=== PATIENT | male | born 1955 | race Caucasian/White ===

== ENCOUNTER → 2017-05-28 | Outpatient (CLI) | payer OTHER ==
--- NOTE | 2017-05-28 17:08 | PCVCIMAG ---
APPROVED REPORT Exam: Stress Echocardiogram Indication: CAD, s/p CABG, HLP Stress Nurse: Mary Grace Mccormack RN Status: routine HR: 65 bpm Rhythm: NSR Medical History Medical History: CAD s/p CABG Procedure The patient underwent an Exercise Stress Test using the Gurpreet Protocol. Blood pressure, heart rate, and EKG were monitored. An Echocardiogram was performed by cinetechnician in four stages in quad fashion. At peak stress, four selected images were obtained and placed side by side with resting images for comparison. Stress Test Details Stress Test: Exercise stress testing was performed using a Gurpreet protocol. HR Resting HR: 65 bpmMax Heart Rate (APMHR): 158 bpm Max HR Achieved: 122 bpmTarget HR (85% APMHR): 134 bpm % of APMHR: 77 Recovery HR: 67 bpm HR response to stress: Normal HR response to stress BP Resting BP: 120/80 mmHg Max BP: 158/80 mmHg Recovery BP: 140/70 mmHg ECG Resting ECG: Sinus Rhythm Stress ECG: Sinus Rhythm ST Change: Normal Arrhythmia: Isolated PVCs Recovery ECG: Sinus Rhythm Recovery Arrhythmia: None Clinical Reason for Termination: Maximal effort, Dyspnea Stress Symptoms: Dyspnea Exercise duration: 9 min 45 sec Highest Stage Achieved: Stage 4: 4.2 mph at 16% grade. Exercise capacity: 12.3 METs Overall Exercise Capacity for Age: Normal Pre-Stress Echo The resting Echocardiogram showed normal left ventricular contractility with an estimated Ejection Fraction of about 50-55%. Normal wall motion in all segments on baseline images. Post-Stress Echo The stress Echocardiogram showed normal left ventricular contractility with an estimated Ejection Fraction of about 60-65%. Normal augmentation of wall motion in all segments on post stress images. Clinical No clinical or ECG evidence for ischemia. Conclusion Clinical Response: Non-ischemic Exercise Capacity: Average Stress ECG Response: Non-ischemic Stress Echo Images: Non-ischemic Other Information Study Quality: Adequate
== END | disposition home or self-care (01) ==
LOC: PCVCIMAG 15:43
PROVIDERS: ATTEND Internal Medicine Cardiovascular Disease
DX: I25.10 Atherosclerotic heart disease of native coronary artery without angina pectoris (principal); I10 Essential (primary) hypertension; Z95.1 Presence of aortocoronary bypass graft; E78.5 Hyperlipidemia, unspecified; E78.00 Pure hypercholesterolemia, unspecified
CPT/HCPCS: 93325; 93351

== ENCOUNTER → 2018-10-31 | Outpatient (CLI) | payer OTHER ==
--- NOTE | 2018-10-31 17:11 | PCVCIMAG ---
APPROVED REPORT Study performed: 10/31/2018 15:10:23 Exam: Stress Echocardiogram Indication: CAD s/p CABG, Hyperlipidemia, Hypertension Patient Location: Echo lab Stress Nurse: Brianna Lagunas RN Status: routine Ht: 6 ft 0 in HR: 69 bpm BP: 138/80 mmHg Rhythm: Atrial Fibrillation Medical History Medical History: CAD s/p CABG Procedure The patient underwent an Exercise Stress Test using the Gurpreet Protocol. Blood pressure, heart rate, and EKG were monitored. An Echocardiogram was performed by systems test technician in four stages in quad fashion. At peak stress, four selected images were obtained and placed side by side with resting images for comparison. Stress Test Details Stress Test: Exercise stress testing was performed using a Gurpreet protocol. HR Resting HR: 69 bpmMax Heart Rate (APMHR): 157 bpm Max HR Achieved: 136 bpmTarget HR (85% APMHR): 133 bpm % of APMHR: 86 Recovery HR: 79 bpm HR response to stress: Normal HR response to stress BP Resting BP: 138/80 mmHg Max BP: 136/88 mmHg Recovery BP: 112/78 mmHg BP response to stress: Normal blood pressure response to stress. ECG Resting ECG: Sinus Rhythm Stress ECG: Sinus Rhythm Recovery ECG: Sinus Rhythm Clinical Reason for Termination: Maximal effort Exercise duration: 10 min 16 sec Highest Stage Achieved: Stage 4: 4.2 mph at 16% grade. Exercise capacity: 13.40 METs Overall Exercise Capacity for Age: Normal Pre-Stress Echo The resting Echocardiogram showed normal left ventricular contractility with an estimated Ejection Fraction of about 55-60%. Post-Stress Echo The stress Echocardiogram showed normal left ventricular contractility with an estimated Ejection Fraction of about 60-65%. Conclusion Clinical Response: Non-ischemic Exercise Capacity: Average Stress ECG Response: Non-ischemic Stress Echo Images: Non-ischemic The left ventricle is normal in size and wall thickness in both the rest and stress images. Other Information Study Quality: Good <Conclusion> The left ventricle is normal in size and wall thickness in both the rest and stress images.
== END | disposition home or self-care (01) ==
LOC: PCVCIMAG 14:57
PROVIDERS: ATTEND Internal Medicine Cardiovascular Disease
DX: I25.10 Atherosclerotic heart disease of native coronary artery without angina pectoris (principal); R06.02 Shortness of breath; I10 Essential (primary) hypertension; E78.5 Hyperlipidemia, unspecified; Z95.1 Presence of aortocoronary bypass graft
CPT/HCPCS: 93325; 93351